=== PATIENT | male | born 1945 | race Hispanic/Latino ===

== ENCOUNTER 2017-05-31 10:16 | Emergency (ER) | payer BC, MEDICARE ==
[2017-05-31 10:19] VITALS: BMI 29.7
[2017-05-31 10:38] VITALS: TEMP 97.5
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
[2017-05-31 11:46] LABS: ARTERIAL BLOOD GAS HCO3 24.3 mmol/L (21-28); ARTERIAL BLOOD GAS O2 CAPACITY 19.2 mL/dl (16-24); ARTERIAL BLOOD GAS O2 CONTENT 18.9 ML/dl (15-23); ARTERIAL BLOOD GAS PH 7.45 (7.35-7.45); ARTERIAL BLOOD HGB O2 SAT 96.3 % (95.0-98.0); CARBOXYHEMOGLOBIN 1.2 % (0.5-1.5); HHB 1.8 % (0-5); METHEMOGLOBIN 0.7 % (0.0-3.0)
[2017-05-31 11:46] LABS: BASO # 0.02 K/mm3 (0.0-2.0); BASO % 0.3 % (0.0-3.0); EOS # 0.1 (0.0-0.7); EOS % 1.1 % (1.5-5.0); GRAN # 4.71 (1.4-6.5); GRAN % 73.2 % (50.0-68.0); HEMATOCRIT 40.5 % (42.0-52.0); LYMPH # 1.3 (1.2-3.4); LYMPH % 19.7 % (22.0-35.0); MEAN CELL VOLUME 75.3 fl (80.0-105.0); MEAN CORPUSCULAR HEMOGLOBIN 25.5 pg (25.0-35.0); MEAN CORPUSCULAR HGB CONC 33.8 g/dl (31.0-37.0); MEAN PLATELET VOLUME 9.1 fl (7.0-11.0); MONO # 0.4 (0.1-0.6); MONO % 5.7 % (1.0-6.0); RED CELL DISTRIBUTION WIDTH 15.5 % (11.5-14.5); WHITE BLOOD COUNT 6.4 10^3/ul (4.5-11.0)
[2017-05-31 11:56] LABS: ALB/GLOB RATIO 1.5 (1.1-1.8); ALKALINE PHOSPHATASE 68 U/L (38-133); ALT/SGPT 30 U/L (7-56); AST/SGOT 25 U/L (15-59); BILIRUBIN,TOTAL 1.1 mg/dL (0.2-1.3); BLOOD UREA NITROGEN 23 mg/dL (7-21); CALCIUM 9.5 mg/dL (8.4-10.5); CARBON DIOXIDE 22 mmol/L (21-33); CHLORIDE 106 mmol/L (98-107); CHOLESTEROL 234 mg/dL (130-200); GFR AFRICAN-AMERICAN > 60; GLUCOSE,RANDOM 91 mg/dL (70-110); POTASSIUM 4.2 mmol/L (3.6-5.0); SODIUM 140 mmol/L (132-148); TOTAL PROTEIN 7.2 g/dL (5.8-8.3)
[2017-05-31 11:56] LABS: INR 0.98 (0.93-1.08); PARTIAL THROMBOPLASTIN TIME 25.9 Seconds (23.7-30.8)
[2017-05-31 12:07] LABS: TROPONIN I < 0.01 ng/mL
--- NOTE | 2017-05-31 12:09 | CT ---
PROCEDURE: CT HEAD WITHOUT CONTRAST. HISTORY: right sided weakness COMPARISON: None available. TECHNIQUE: Axial computed tomography images were obtained through the head/brain without intravenous contrast. Radiation dose: Total exam DLP = 677 mGy-cm. This CT exam was performed using one or more of the following dose reduction techniques: Automated exposure control, adjustment of the mA and/or kV according to patient size, and/or use of iterative reconstruction technique. FINDINGS: HEMORRHAGE: No intracranial hemorrhage. BRAIN: No mass effect or edema. No atrophy or chronic microvascular ischemic changes. VENTRICLES: Unremarkable. No hydrocephalus. CALVARIUM: Unremarkable. PARANASAL SINUSES: Unremarkable as visualized. No significant inflammatory changes. MASTOID AIR CELLS: Unremarkable as visualized. No inflammatory changes. OTHER FINDINGS: None. IMPRESSION: No acute findings
--- NOTE | 2017-05-31 12:25 | RAD ---
HISTORY: possible cva COMPARISON: 04/22/2015 FINDINGS: LUNGS: No active pulmonary disease. PLEURA: No significant pleural effusion identified, no pneumothorax apparent. CARDIOVASCULAR: Normal. OSSEOUS STRUCTURES: No significant abnormalities. VISUALIZED UPPER ABDOMEN: Normal. OTHER FINDINGS: None. IMPRESSION: No active disease.
[2017-05-31 12:58] VITALS: BP 154/87; PULSE 53; RESP 16; O2SAT 97
--- NOTE | 2017-05-31 19:54 | CARD ---
APPROVED REPORT EKG Measurement Heart [id number] MI [id number] <Conclusion> Sinus bradycardia Otherwise normal ECG
== END 2017-05-31 13:00 | disposition left against medical advice (07) ==
LOC: ED 10:16
DX: R11.0 Nausea (principal); R42 Dizziness and giddiness; R53.1 Weakness

== ENCOUNTER 2019-02-07 07:47 | Outpatient (CLI) | payer BC, MEDICARE | END 2019-02-07 07:48 | disposition home or self-care (01) | LOC: PAT 07:47 ==

== ENCOUNTER 2019-02-19 07:18 | Day surgery (SDC) | payer BC, MEDICARE ==
[2019-02-19] MEDS ORDERED: Propofol 10 mg/ml Inj (20 ML) ONE (10:17)
[2019-02-19] MEDS ORDERED: Midazolam 2 MG/2 ML VIAL ONE (10:18)
[2019-02-19] MEDS ORDERED: Rocuronium 10 mg/ml (5 ml) ONE (10:20)
[2019-02-19] MEDS ORDERED: Succinylcholine 200 mg/10 ml Inj IV ONE (10:20)
[2019-02-19] MEDS ORDERED: Bupivacaine 0.5% 50 ML IJ ONE (10:39)
[2019-02-19] MEDS ORDERED: CeFAZolin 1 gm in NS 100ml IVPB ONE (10:42)
[2019-02-19] MEDS ORDERED: Bupivacaine 0.5% Inj(30mL) IJ ONE (10:43)
[2019-02-19] MEDS ORDERED: Neostigmine Methylsulfate 3mg/3ml Syringe IV ONE (11:23)
[2019-02-19] MEDS ORDERED: Glycopyrrolate 0.2 mg/ml (2ml vial) ONE (11:23)
[2019-02-19] MEDS ORDERED: ePHEDrine 50 mg/ml Inj ONE (11:39)
--- NOTE | 2019-02-19 11:52 | PCM.SURG1 ---
Surgeon's Initial Post Op Note - Surgeon's Notes Surgeon: Dr. Wilhelm Director [employer]: Dr. Watts PGY3 Type of Anesthesia: General Endo Pre-Operative Diagnosis: incarcerated vental hernia Operative Findings: see dictation Post-Operative Diagnosis: same Operation Performed: laparoscopic ventral hernia repair with mesh Specimen/Specimens Removed: ventral hernia contents Estimated Blood Loss: EBL {In ML}: 5 Blood Products Given: N/A Drains Used: No Drains Post-Op Condition: Good Date of Surgery/Procedure: 02/19/19 Time of Surgery/Procedure: 11:52
[2019-02-19] MEDS ORDERED: HYDROmorphone 0.5 mg/0.5 ml ISec IVP PRN (11:54)
[2019-02-19] MEDS ORDERED: Lactated Ringer's 1,000 ML IV SCH (12:00)
[2019-02-19 13:29] VITALS: BP 173/88; PULSE 62; RESP 18; TEMP 97.7; O2SAT 95
--- NOTE | 2019-02-20 05:35 | OP ---
PROCEDURE DATE: 02/19/2019 SURGEON: Tod Wilhelm MD LIBRARY INFORMATION TECHNICIAN: Mariajose Watts DO, PGY-3 TYPE OF ANESTHESIA: General endotracheal. PREOPERATIVE DIAGNOSIS: Incarcerated ventral hernia. POSTOPERATIVE DIAGNOSIS: Incarcerated ventral hernia. OPERATION PERFORMED: Laparoscopic ventral hernia repair with mesh. SPECIMEN: Hernia contents. ESTIMATED BLOOD LOSS: 5 mL. DESCRIPTION OF PROCEDURE: After consent was obtained, the patient was taken to the operating room, and placed on the operating table in the supine position. General anesthesia was administered, the left arm was tucked, and the patient was prepped and draped in the usual sterile fashion. A timeout was completed verifying correct patient, procedure site, and positioning. An incision was made at Palmar's point through which a 12-mm Visiport was used to enter the abdomen with a 10-mm scope. The abdomen was insufflated with carbon dioxide to a pressure of 15 mmHg. The patient tolerated insufflation well. An additional 5-mm trocar was inserted along the left flank just lateral to the rectus sheath. The trocar was placed under direct visualization. Upon examining the abdomen, there was no acute pathology noted. A [place] and electrocautery was used to open the ventral hernia sac through which the contents were reduced into the abdomen. No bowel was noted to be within the hernia. The hernia contain strictly extraperitoneal fat. Once the adipose tissue was completely removed from the ventral hernia and the abdominal wall, a 9-cm round mesh was selected and inserted through the 12-mm subcostal port. Prior to insertion, a Vicryl stitch was applied to the center of the [place] to allow for anchoring. The mesh was placed into the peritoneal cavity without any complications. Then using proper orientation, the mesh was unraveled using Vintedige grasper. A granee needle was then used to pull the transfascial suture out of the abdomen onto the surgical field. The suture was adjusted to provide adequate tension on the mesh and a clamp was applied to the end of the suture to maintain position. The mesh was noted to provide adequate coverage of both the ventral hernia as well as the umbilicus. The mesh was tacked in place using an absorbable tacker. Tacks were placed in a circumferential fashion approximately 0.5 cm from the edge and approximately 1 cm from each other. was done with the second row of tacks circumferentially to prevent mesh migration and hernia recurrence. After the mesh was placed, a 5-mm scope was used to allow the hernia contents to be removed through the subcostal 12-mm port. At this time, the abdominal cavity was inspected and the hernia repair appeared satisfactory. All trocars removed under direct visualization and no bleeding was noted at any of the trocar sites. The abdomen was allowed to collapse and the 12-mm subchondral incision was closed with a 0-Vicryl for the fascia and then a single interrupted deep dermal 2-0 Vicryl was used to close the 12-mm port. The skin incision at both trocars were closed using 4-0 Vicryl in an interrupted fashion for the 5-mm and a running fashion for the 12-mm port respectively. Skin glue was then applied to all the port sites as well as the Breaux needle site. The patient tolerated the procedure well with no complications. The patient was extubated in the OR and taken to PACU in stable condition. Mariajose Watts DO Tod Wilhelm MD JASEN
== END 2019-02-19 15:10 | disposition home or self-care (01) ==
LOC: SDS 07:18
PROVIDERS: ATTEND General Practice
DX: K43.6 Other and unspecified ventral hernia with obstruction, without gangrene (principal)
CPT/HCPCS: 49653; 88302; C1781; J0330; J0690; J1170; J2250; J2405; J2704; J2710; J3010; J7120